=== PATIENT | male | born 1950 | race Caucasian/White ===

== ENCOUNTER 2018-12-25 21:55 | Emergency (ER) | payer SELFPAY ==
[~2018-12-25] VITALS: Ht 188 cm; Wt 127.0 kg
[2018-12-25 22:27] LABS: BASOPHILS ABSOLUTE AUTO 0.02 K/mm3 (0.00-0.23); BASOPHILS PERCENT AUTO 0 % (0-2); EOSINOPHILS ABSOLUTE AUTO 0.16 K/mm3 (0.00-0.68); EOSINOPHILS PERCENT AUTO 2 % (0-6); Hematocrit 40.2 % (37.0-53.0); Hemoglobin 12.9 g/dL (13.5-17.5); IMMATURE GRAN ABSOLUTE AUTO 0.02 K/mm3 (0.00-0.10); IMMATURE GRAN PERCENT AUTO 0 % (0-1); LYMPHOCYTES ABSOLUTE AUTO 2.18 K/mm3 (0.84-5.20); LYMPHOCYTES PERCENT AUTO 26 % (21-46); MONOCYTES ABSOLUTE AUTO 0.86 K/mm3 (0.16-1.47); MONOCYTES PERCENT AUTO 10 % (4-13); Mean Corpuscular HGB 27.4 pg (26.0-34.0); Mean Corpuscular HGB Conc 32.1 g/dL (31.5-36.5); Mean Corpuscular Volume 86 fL (80-100); Mean Platelet Volume 10.7 fL (9.1-12.4); NEUTROPHILS ABSOLUTE AUTO 5.08 K/mm3 (1.96-9.15); NEUTROPHILS PERCENT AUTO 61 % (41-73); Platelet Count 252 K/mm3 (150-400); RDW Coefficient Variation 13.7 % (11.7-14.2); White Blood Cell Count 8.32 K/mm3 (4.00-11.30)
[2018-12-25 22:43] LABS: International Normalized Ratio 0.97; Prothrombin Time Results 10.3 Sec (9.7-11.5)
[2018-12-25 22:44] LABS: Alanine Aminotransfer (ALT/SGP 22 U/L (12-78); Albumin, Blood 3.5 g/dL (3.4-5.0); Alk Phos 71 U/L (50-136); Anion Gap 8 mmol/L (6-16); Aspartate Aminotrans (AST/SGOT 15 U/L (12-37); Bilirubin, Total 0.4 mg/dL (0.1-1.0); Blood Urea Nitrogen 21 mg/dL (8-24); Bun/Creatinine Ratio 21.9 (12.0-20.0); C-REACTIVE PROTEIN, EXT RANGE <0.290 mg/dL (0.000-0.300); CO2, Blood 27 mmol/L (21-32); Calcium, Blood 8.7 mg/dL (8.5-10.1); Chloride, Blood 105 mmol/L (98-108); Creatinine, Blood 0.96 mg/dL (0.60-1.20); Globulin, Blood 3.6 g/dL (2.2-4.0); Glomerular Filtration Rate >60 (60-); Glucose, Blood 80 mg/dL (70-99); Potassium, Blood 3.4 mmol/L (3.5-5.5); Sodium, Blood 140 mmol/L (136-145); Total Protein, Blood 7.1 g/dL (6.4-8.2)
[2018-12-25] MEDS ORDERED: ALBU3IS INH (22:58)
[2018-12-25] MEDS ORDERED: COMBIVENT RESPIM4 GM INH (23:02)
[2018-12-25] MEDS ORDERED: ASPI325 PO (23:02)
[2018-12-25] MEDS ORDERED: LOSARTAN-HCTZ1 EAC1 PO (23:04)
[2018-12-25] MEDS ORDERED: METF500 PO (23:04)
[2018-12-25] MEDS ORDERED: TRAZ50 PO (23:05)
[2018-12-25] MEDS ORDERED: Zocor20 MG PO (23:05)
== END 2018-12-26 01:30 | disposition home or self-care (01) ==
LOC: ER 21:55
PROVIDERS: Emergency Medicine
DX: H34.12 Central retinal artery occlusion, left eye (principal); Z79.899 Other long term (current) drug therapy; Z79.82 Long term (current) use of aspirin; E11.9 Type 2 diabetes mellitus without complications; J44.9 Chronic obstructive pulmonary disease, unspecified; I10 Essential (primary) hypertension; E78.5 Hyperlipidemia, unspecified; E03.9 Hypothyroidism, unspecified
CPT/HCPCS: 70450; 70496; 70498; 80053; 85025; 85610; 85651; 85730; 86140; 99285-25; Q9967

== ENCOUNTER 2022-03-08 13:51 | Emergency (ER) | payer OTHER ==
[~2022-03-08] VITALS: Ht 188 cm; Wt 104.3 kg
[~2022-03-08 13:51] MED LIST: ALBU3IS INH; ASPI325 PO; COMBIVENT RESPIM4 GM INH; LOSARTAN-HCTZ1 EAC1 PO; METF500 PO; TRAZ50 PO; Zocor20 MG PO
[2022-03-08 15:43] LABS: BASOPHILS ABSOLUTE AUTO 0.02 K/mm3 (0.00-0.23); BASOPHILS PERCENT AUTO 0 % (0-2); EOSINOPHILS ABSOLUTE AUTO 0.04 K/mm3 (0.00-0.68); EOSINOPHILS PERCENT AUTO 0 % (0-6); Hemoglobin 13.4 g/dL (13.5-17.5); IMMATURE GRAN ABSOLUTE AUTO 0.02 K/mm3 (0.00-0.10); IMMATURE GRAN PERCENT AUTO 0 % (0-1); LYMPHOCYTES ABSOLUTE AUTO 1.22 K/mm3 (0.84-5.20); LYMPHOCYTES PERCENT AUTO 14 % (21-46); MONOCYTES ABSOLUTE AUTO 0.77 K/mm3 (0.16-1.47); MONOCYTES PERCENT AUTO 9 % (4-13); Mean Corpuscular HGB 29.5 pg (26.0-34.0); Mean Corpuscular HGB Conc 34.4 g/dL (31.5-36.5); Mean Corpuscular Volume 86 fL (80-100); NEUTROPHILS ABSOLUTE AUTO 6.94 K/mm3 (1.96-9.15); NEUTROPHILS PERCENT AUTO 77 % (41-73); Platelet Count 262 K/mm3 (150-400); RDW Coefficient Variation 13.1 % (11.7-14.2); RDW Standard Deviation 41.1 fL (35.1-46.3); Red Blood Cell Count 4.54 M/mm3 (4.30-5.90); White Blood Cell Count 9.01 K/mm3 (4.00-11.30)
[2022-03-08 16:09] LABS: Albumin, Blood 3.6 g/dL (3.4-5.0); Albumin/Globulin Ratio 0.9 (0.8-1.8); Bilirubin, Total 0.8 mg/dL (0.1-1.0); Bun/Creatinine Ratio 20.6 (12.0-20.0); Creatinine, Blood 1.26 mg/dL (0.60-1.20); Globulin, Blood 3.8 g/dL (2.2-4.0); Potassium, Blood 3.3 mmol/L (3.5-5.5); Total Protein, Blood 7.4 g/dL (6.4-8.2)
[2022-03-08] MEDS ORDERED: PRED20 PO (16:52)
[2022-03-08] MEDS ORDERED: ALBU90OI6 INH (16:52)
== END 2022-03-08 17:05 | disposition home or self-care (01) ==
LOC: ER 13:51
PROVIDERS: Emergency Medicine
DX: J20.9 Acute bronchitis, unspecified (principal); R07.9 Chest pain, unspecified; R55 Syncope and collapse; J44.0 Chronic obstructive pulmonary disease with (acute) lower respiratory infection; I10 Essential (primary) hypertension; E11.9 Type 2 diabetes mellitus without complications; Z79.84 Long term (current) use of oral hypoglycemic drugs; Z79.899 Other long term (current) drug therapy
CPT/HCPCS: 71045; 80053; 83880; 84484; 85025; 85379; 93005; 93010; 94640; 94664; 99284-25; J7512

== ENCOUNTER 2022-10-04 07:34 | Day surgery (SDC) | payer OTHER ==
[~2022-10-04 07:34] MED LIST changes: +ALBU90OI6 INH; +PRED20 PO
[2022-10-04 08:10] LABS: Creatinine (POC) 1.2 mg/dL (0.8-1.3)
== END 2022-10-04 22:53 | disposition home or self-care (01) ==
LOC: CT 07:34
DX: R07.89 Other chest pain (principal); I10 Essential (primary) hypertension; E11.9 Type 2 diabetes mellitus without complications; J44.9 Chronic obstructive pulmonary disease, unspecified
CPT/HCPCS: 75574; 82565; Q9967

== ENCOUNTER 2024-05-03 07:01 | Emergency (ER) | payer OTHER ==
[~2024-05-03] VITALS: Ht 188 cm; Wt 118.8 kg
[~2024-05-03 07:01] MED LIST changes: -ASPI325 PO; +Aspir 8181 MG PO
[2024-05-03 07:38] VITALS: BP 155/67
[2024-05-07] MEDS ORDERED: ATOR40TA PO (12:44)
[2024-05-07] MEDS ORDERED: VITAMIN D5000 UNIT PO (12:44)
[2024-05-07] MEDS ORDERED: VITAMIN B-122000 MC1 PO (12:45)
[2024-05-07] MEDS ORDERED: FISH OIL 1,0001 EA10 PO (12:46)
[2024-05-07] MEDS ORDERED: LOSARTAN-HCTZ1 EAC6 PO (12:47)
[2024-05-07] MEDS ORDERED: COMBIVENT RESPIM4 G1 (12:47)
[2024-05-07] MEDS ORDERED: LOSARTAN-HCTZ1 EACH PO (12:48)
[2024-05-07] MEDS ORDERED: METO25ER PO (12:48)
[2024-05-07] MEDS ORDERED: NITR.4SL SL (12:48)
== END 2024-05-03 08:22 | disposition home or self-care (01) ==
LOC: ER 07:01
DX: L02.811 Cutaneous abscess of head [any part, except face] (principal); I10 Essential (primary) hypertension; E11.9 Type 2 diabetes mellitus without complications; J44.9 Chronic obstructive pulmonary disease, unspecified; E03.9 Hypothyroidism, unspecified; E78.00 Pure hypercholesterolemia, unspecified; Z79.82 Long term (current) use of aspirin; Z79.84 Long term (current) use of oral hypoglycemic drugs; Z79.899 Other long term (current) drug therapy
CPT/HCPCS: 99283

== ENCOUNTER 2024-05-08 08:13 | Day surgery (SDC) | payer OTHER ==
[~2024-05-08] VITALS: Ht 188 cm; Wt 119.0 kg
[2024-05-08] VITALS (10 sets, daily range): BP systolic 106–136; BP diastolic 59–74
[~2024-05-08 08:13] MED LIST changes: +ATOR40TA PO; +COMBIVENT RESPIM4 G1; +FISH OIL 1,0001 EA10 PO; +LOSARTAN-HCTZ1 EAC6 PO; +LOSARTAN-HCTZ1 EACH PO; +METO25ER PO; +NITR.4SL SL; +VITAMIN B-122000 MC1 PO; +VITAMIN D5000 UNIT PO
[2024-05-08] MEDS ORDERED: NS 1,000 ML IV ONE ×2 (08:57→10:33)
[2024-05-08] MEDS ORDERED: Verapamil HCL 2.5 MG/ML 2ML Injection ONE (08:57)
[2024-05-08] MEDS ORDERED: Heparin Sodium 1000 Units/ML 10ML MDV ONE ×2 (08:57→10:34)
[2024-05-08] MEDS ORDERED: NS 250 ML IV ONE (08:57)
[2024-05-08] MEDS ORDERED: Midazolam HCl 1MG / ML 2ML Vial ONE (10:34)
[2024-05-08] MEDS ORDERED: FentaNYL Citrate 50 MCG/ML 2 ML Injection ONE (10:34)
--- NOTE | 2024-05-08 11:23 | NUR ---
PATIENT TO RECOVERY ROOM AT 1115 S/P ANGIOGRAM. PT AWAKE AND ALERT, DENIES COMPLAINTS. TR BAND TO RIGHT RADIAL ARTERY W 11CC AIR TO BALLOON. SITE W/O SWELLING, REDNESS, BLEEDING, PAIN. CIRC CHECK WNL, PT DENIES NUMBNESS. PT UP IN CHAIR DRINKING COFFEE AND EATING SANDWICH.
--- NOTE | 2024-05-08 12:43 | NUR ---
5MIN AFTER SECOND 3CC OF AIR REMOVED FROM TR BAND, A SMALL AMT OF OOZING NOTED, WITH A SMALL AMT OF SWELLING NOTED ABOVE BAND AT FOREARM AREA. 3CC AIR REPLACED AND PRESSURE HELD OVER FOREARM FOR 10MIN. AREA NOW SOFT AND OOZING STOPPED.
--- NOTE | 2024-05-08 14:25 | NUR ---
TR BAND FULLY DEFLATED AT 1355. AREA REMAINS SOFT, WITHOUT BLEEDING OR HEMATOMA. VERBAL AND WRITTEN DISCHARGE INSTRUCTIONS GIVEN TO PT WITH CLEAR UNDERSTANDING.
--- NOTE | 2024-05-08 15:04 | NUR ---
Pt discharged home in stable condition at 1500. Pt's daughter drove pt home. Pt walked out via wheelchair. TR band removed, drsg placed. area soft, without bleeding, or hematoma. Circ check wnl. VSS. IV dc'd intact. wrist immobolizer in place.
== END 2024-05-08 16:00 | disposition home or self-care (01) ==
LOC: MHTC 08:13 → ORSCMMR 08:13 → MHTC 08:14
DX: I25.118 Atherosclerotic heart disease of native coronary artery with other forms of angina pectoris (principal); J44.9 Chronic obstructive pulmonary disease, unspecified; E11.9 Type 2 diabetes mellitus without complications; I10 Essential (primary) hypertension; E03.9 Hypothyroidism, unspecified; E78.00 Pure hypercholesterolemia, unspecified; Z79.82 Long term (current) use of aspirin; Z79.899 Other long term (current) drug therapy
CPT/HCPCS: 76937; 93458; 99152; C1769; C1887; C1894; J1644; J2250; J3010; J7030; J7050; Q9967

== ENCOUNTER 2024-11-09 11:27 | Day surgery (SDC) | payer OTHER ==
[~2024-11-09] VITALS: Ht 188 cm; Wt 111.4 kg
[~2024-11-09 11:27] MED LIST changes: +CeFAZolin Sodium 2,000 MG VIAL ONE; +Lidocaine HCl 2% 10 ML SDA ONE; +NS 0 ML IV ONE; +NS 500 ML IV ONE
[2024-11-09] MEDS ORDERED: WIXELA 250-501 EAC1 INH (11:59)
[2024-11-09] MEDS ORDERED: NS 500 ML IV ONE (12:00)
[2024-11-09] MEDS ORDERED: SILD50TA PO (12:00)
--- NOTE | 2024-11-09 12:06 | NUR ---
11/09/24 1206 Dianna Ingram TIME OUT PERFORMED AT BEDSIDE WITH DR DYER BY RN NSC IMMEDIATELY PRIOR TO INJECTION OF 6ML OF SOLUTION CONSISTING OF 9ML 1% LIDOCAINE WITH EPI [id number] AND 1ML 8.4% SODIUM BICARBONATE. PATIENT TOLERATED PROCEDURE WELL.
[2024-11-09 12:25] VITALS: BP 111/63
== END 2024-11-09 12:59 | disposition home or self-care (01) ==
LOC: ORSCSDS 11:27
PROVIDERS: Orthopaedic Surgery
PROC: 0LN70ZZ Release Right Hand Tendon, Open Approach (ICD-10-PCS; principal; 2024-11-09 13:00)
DX: M65.341 Trigger finger, right ring finger (principal); E11.9 Type 2 diabetes mellitus without complications; I10 Essential (primary) hypertension; E03.9 Hypothyroidism, unspecified; J44.9 Chronic obstructive pulmonary disease, unspecified; Z79.82 Long term (current) use of aspirin; Z79.899 Other long term (current) drug therapy
CPT/HCPCS: 82947; J0690; J2003; J7040